=== PATIENT | female | born 1985 | race Two or more races ===

== ENCOUNTER 2017-04-03 15:02 | Emergency (ER) | payer OTHER ==
[~2017-04-03] VITALS: Ht 154.9 cm; Wt 77.4 kg
[2017-04-03 15:43] LABS: HEMATOCRIT 39.4 % (34.6-47.8); HEMOGLOBIN 13.4 g/dL (11.7-16.4)
[2017-04-03 15:55] LABS: BLOOD UREA NITROGEN 6 mg/dL (7-18)
[2017-04-03 17:17] VITALS: BP 106/68
== END 2017-04-03 17:19 | disposition home or self-care (01) ==
LOC: ED 17:13
DX: O20.0 Threatened abortion (principal)
CPT/HCPCS: 36415; 76801; 80048; 81003; 82040; 84702; 85025; 86901; 99285

== ENCOUNTER 2018-04-13 16:28 | Emergency (ER) | payer SELFPAY ==
[~2018-04-13] VITALS: Ht 165.1 cm; Wt 85.7 kg
[2018-04-13 17:11] VITALS: BP 118/68
[2018-04-13] MEDS ORDERED: LIDOCAINE-MPF 1%, 5ML ONE (17:24)
[2018-04-13] MEDS ORDERED: LIDOCAINE-MPF 1%, 5ML INFIL ONE (17:30)
[2018-04-13] MEDS ORDERED: BACITRACIN ZINC OINT 500U/GM, 0.9 GM ONE (18:02)
== END 2018-04-13 18:08 | disposition home or self-care (01) ==
LOC: ED 18:02
DX: S90.112A Contusion of left great toe without damage to nail, initial encounter (principal); L03.032 Cellulitis of left toe; X58.XXXA Exposure to other specified factors, initial encounter; Y93.89 Activity, other specified; Y92.009 Unspecified place in unspecified non-institutional (private) residence as the place of occurrence of the external cause; Y99.8 Other external cause status
CPT/HCPCS: 10060; 99283